=== PATIENT | female | born 1995 | race African-American/Black ===

== ENCOUNTER 2018-05-06 17:21 | Emergency (ER) | payer MEDICAID, OTHER ==
[~2018-05-06] VITALS: Ht 160 cm; Wt 88.9 kg
[2018-05-06 17:38] VITALS: BP 136/76
[2018-05-06 17:41] LABS: BILIRUBIN,URINE NEGATIVE (NEG); CLARITY,URINE CLEAR; COLOR,URINE YELLOW; NITRITE,URINE NEGATIVE (NEG); PROTEIN,URINE NEGATIVE (NEG-TRACE)
[2018-05-06 17:51] LABS: BACTERIA,URINE FEW /HPF (0-FEW); RBC,URINE OCC /HPF (0-2); SQUAMOUS EPITHELIAL CELL,UR MOD /LPF; WBC,URINE RARE /HPF (0-4)
[2018-05-06 17:52] LABS: U PREG PATIENT NEGATIVE (NEG)
--- NOTE | 2018-05-06 18:07 | PHYS DOC ---
Past Medical History Past Medical History: Kidney Stone Past Surgical History: No Surgical History Alcohol Use: None Drug Use: None Adult General Chief Complaint Chief Complaint: ABDOMINAL PAIN HPI HPI Patient is a 22 year old female presented to ER today for evaluation of right upper quadrant abdominal pain off and on for one year. The symptoms started again at 10 AM today. She denies any nausea or vomiting, no pelvic pain, no vaginal bleeding or discharge. She denies any chest pain, no trouble breathing. No urinary symptoms. Review of Systems Review of Systems Constitutional: Denies fever or chills [] Eyes: Denies change in visual acuity, redness, or eye pain [] HENT: Denies nasal congestion or sore throat [] Respiratory: Denies cough or shortness of breath [] Cardiovascular: No additional information not addressed in HPI [] GI: positive for abdominal pain NO nausea, vomiting, bloody stools or diarrhea [ ] : Denies dysuria or hematuria [] Musculoskeletal: Denies back pain or joint pain [] Integument: Denies rash or skin lesions [] Neurologic: Denies headache, focal weakness or sensory changes [] Endocrine: Denies polyuria or polydipsia [] All other systems were reviewed and found to be within normal limits, except as documented in this note. Allergies Allergies Allergies Coded Allergies Type Severity Reaction Last Updated Verified No Known Drug Allergies 09/21/13 No Physical Exam Physical Exam Constitutional: Well developed, well nourished, no acute distress, non-toxic appearance. [] HENT: Normocephalic, atraumatic, bilateral external ears normal, oropharynx moist, no oral exudates, nose normal. [] Eyes: PERRLA, EOMI, conjunctiva normal, no discharge. [] Neck: Normal range of motion, no tenderness, supple, no stridor. [] Cardiovascular:Heart rate regular rhythm, LOUD HOLOSYSTOLIC HEART MURMUR PRESENT. Lungs & Thorax: Bilateral breath sounds clear to auscultation [] Abdomen: Bowel sounds normal, soft, RUQ tenderness TO PALPATION, no masses, no pulsatile masses. [] Skin: Warm, dry, no erythema, no rash. [] Back: No tenderness, no CVA tenderness. [] Extremities: No tenderness, no cyanosis, no clubbing, ROM intact, no edema. [] Neurologic: Alert and oriented X 3, normal motor function, normal sensory function, no focal deficits noted. [] Psychologic: Affect normal, judgement normal, mood normal. [] Current Patient Data Vital Signs Vital Signs Date Time Temp Pulse Resp B/P (MAP) Pulse Ox O2 Delivery O2 Flow Rate FiO2 05/06/18 17:38 98.3 82 18 136/76 (96) 100 Room Air 98.3 Lab Values Laboratory Tests Test 05/06/18 17:30 05/06/18 18:16 05/06/18 19:05 Urine Collection Type Unknown Urine Color Yellow Urine Clarity Clear Urine pH 6.0 Urine Specific [place] >=1.030 Urine Protein Negative mg/dL (NEG-TRACE) Urine Glucose (UA) Negative mg/dL (NEG) Urine Ketones (Stick) Negative mg/dL (NEG) Urine Blood Large (NEG) Urine Nitrite Negative (NEG) Urine Bilirubin Negative (NEG) Urine Urobilinogen Dipstick 1.0 mg/dL (0.2 mg/dL) Urine Leukocyte Esterase Negative (NEG) Urine RBC Occ /HPF (0-2) Urine WBC Rare /HPF (0-4) Urine Squamous Epithelial Cells Mod /LPF Urine Bacteria Few /HPF (0-FEW) Urine Mucus Marked /LPF Urine Test Negative (NEG) White Blood Count 7.1 x10^3/uL (4.0-11.0) Red Blood Count 4.63 x10^6/uL (3.50-5.40) Hemoglobin 10.8 g/dL (12.0-15.5) L Hematocrit 33.7 % (36.0-47.0) L Mean Corpuscular Volume 73 fL (79-100) L Mean Corpuscular Hemoglobin 23 pg (25-35) L Mean Corpuscular Hemoglobin Concent 32 g/dL (31-37) Red Cell Distribution Width 16.7 % (11.5-14.5) H Platelet Count 291 x10^3/uL (140-400) Neutrophils (%) (Auto) 47 % (31-73) Lymphocytes (%) (Auto) 41 % (24-48) Monocytes (%) (Auto) 9 % (0-9) Eosinophils (%) (Auto) 2 % (0-3) Basophils (%) (Auto) 1 % (0-3) Neutrophils # (Auto) 3.3 x10^3uL (1.8-7.7) Lymphocytes # (Auto) 2.9 x10^3/uL (1.0-4.8) Monocytes # (Auto) 0.6 x10^3/uL (0.0-1.1) Eosinophils # (Auto) 0.2 x10^3/uL (0.0-0.7) Basophils # (Auto) 0.1 x10^3/uL (0.0-0.2) Sodium Level 139 mmol/L (136-145) Potassium Level 4.0 mmol/L (3.5-5.1) Chloride Level 103 mmol/L (98-107) Carbon Dioxide Level 29 mmol/L (21-32) Anion Gap 7 (6-14) Blood Urea Nitrogen 13 mg/dL (7-20) Creatinine 0.8 mg/dL (0.6-1.0) Estimated GFR (Cockcroft-Gault) 109.6 BUN/Creatinine Ratio 16 (6-20) Glucose Level 91 mg/dL (70-99) Calcium Level 9.1 mg/dL (8.5-10.1) Total Bilirubin 0.2 mg/dL (0.2-1.0) Aspartate Amino Transferase (AST) 17 U/L (15-37) Alanine Aminotransferase (ALT) 18 U/L (14-59) Alkaline Phosphatase 77 U/L (46-116) Total Protein 8.5 g/dL (6.4-8.2) H Albumin 3.7 g/dL (3.4-5.0) Albumin/Globulin Ratio 0.8 (1.0-1.7) L Lipase 123 U/L (73-393) Laboratory Tests 05/06/18 18:16 Laboratory Tests 05/06/18 19:05 EKG EKG [] Radiology/Procedures Radiology/Procedures [][facility] [address] [place] [address] IMAGING REPORT Signed PATIENT: GRACE GALLOWAY ACCOUNT: [id number] : 1995 LOCATION: ER AGE: 22 SEX: F EXAM STATUS: REG ER ORD. PHYSICIAN: LOYD GUTIERREZ DO REASON: RUQ ABDOMINAL PAIN PROCEDURE: ABDOMEN LTD Indication:RUQ PAIN TECHNIQUE: Grayscale, color Doppler and spectral waveform is of the limited abdomen obtained. COMPARISON:None FINDINGS:Visualized pancreas is within normal limits. Pancreatic tail not visualized due to overlying bowel gas. IVC is within normal limits. Main portal vein is patent. Liver measures 15 cm in longest dimension with diffusely increased echogenicity. Gallstones noted. No pericholecystic fluid or gallbladder wall thickening. Gallbladder is nondistended. CBD measures 3 mm in diameter and is within normal limits. Right kidney measures 10 cm in length without hydronephrosis. IMPRESSION: 1. Normal bilateral gallstone without sonographic secondary signs to suggest acute cholecystitis. Further evaluation with HIDA scan is recommended if concern for acute cholecystitis remains high. 2. Mild hepatomegaly. Electronically signed by: Martinez Castro DO (05/06/2018 7:52 PM) [facility] DICTATED and SIGNED BY: MARTINEZ CASTRO DO DATE: 05/06/18 1950 Course & Med Decision Making Course & Med Decision Making Pertinent Labs and Imaging studies reviewed. (See chart for details) [] Dragon Disclaimer Dragon Disclaimer This electronic medical record was generated, in whole or in part, using a voice recognition dictation system. Departure Departure Impression: Primary Impression: Biliary colic Disposition: 01 HOME, SELF-CARE Condition: STABLE Referrals: MICHAEL MEEKS MD Patient Instructions: Biliary Colic LOYD GUTIERREZ DO May 06, 2018 18:07
[2018-05-06 18:34] LABS: BASO # 0.1 x10^3/uL (0.0-0.2); BASO % 1 % (0-3); EOS # 0.2 x10^3/uL (0.0-0.7); EOS % 2 % (0-3); HEMATOCRIT 33.7 % (36.0-47.0); HEMOGLOBIN 10.8 g/dL (12.0-15.5); LYMPH # 2.9 x10^3/uL (1.0-4.8); LYMPH % 41 % (24-48); MEAN CORPUSCULAR HEMOGLOBIN 23 pg (25-35); MEAN CORPUSCULAR HGB CONC 32 g/dL (31-37); MEAN CORPUSCULAR VOLUME 73 fL (79-100); MONO # 0.6 x10^3/uL (0.0-1.1); MONO % 9 % (0-9); NEUT # 3.3 x10^3uL (1.8-7.7); NEUT % 47 % (31-73); PLATELET COUNT 291 x10^3/uL (140-400); RED BLOOD COUNT 4.63 x10^6/uL (3.50-5.40); RED CELL DISTRIBUTION WIDTH 16.7 % (11.5-14.5); WHITE BLOOD COUNT 7.1 x10^3/uL (4.0-11.0)
[2018-05-06 19:21] LABS: CALCIUM 9.1 mg/dL (8.5-10.1); CREATININE 0.8 mg/dL (0.6-1.0); GFR 109.6
[2018-05-06 19:28] LABS: ALBUMIN 3.7 g/dL (3.4-5.0); ALBUMIN/GLOBULIN RATIO 0.8 (1.0-1.7); TOTAL BILIRUBIN 0.2 mg/dL (0.2-1.0); TOTAL PROTEIN 8.5 g/dL (6.4-8.2)
--- NOTE | 2018-05-06 19:56 | RAD ---
Indication:RUQ PAIN TECHNIQUE: Grayscale, color Doppler and spectral waveform is of the limited abdomen obtained. COMPARISON:None FINDINGS:Visualized pancreas is within normal limits. Pancreatic tail not visualized due to overlying bowel gas. IVC is within normal limits. Main portal vein is patent. Liver measures 15 cm in longest dimension with diffusely increased echogenicity. Gallstones noted. No pericholecystic fluid or gallbladder wall thickening. Gallbladder is nondistended. CBD measures 3 mm in diameter and is within normal limits. Right kidney measures 10 cm in length without hydronephrosis. IMPRESSION: 1. Normal bilateral gallstone without sonographic secondary signs to suggest acute cholecystitis. Further evaluation with HIDA scan is recommended if concern for acute cholecystitis remains high. 2. Mild hepatomegaly. Electronically signed by: Martinez Castro DO (05/06/2018 7:52 PM) [facility]
== END 2018-05-06 20:29 | disposition home or self-care (01) ==
LOC: ER 17:21
DX: K80.50 Calculus of bile duct without cholangitis or cholecystitis without obstruction (principal); Z87.442 Personal history of urinary calculi
CPT/HCPCS: 36415; 76705; 80053; 81001; 81025; 83690; 85025; 99284-25

== ENCOUNTER → 2018-06-26 | Outpatient (CLI) | payer OTHER ==
--- NOTE | 2018-06-26 11:26 | CARD ---
MR#: [id number] Date of Study: 06/26/2018 Ordering Physician: ELANA DURON, Referring Physician: ELANA DURON Tech: Carmita Moore RDCS APPROVED REPORT EXAM: Two-dimensional and M-mode echocardiogram with Doppler and color Doppler. Other Information Quality : Good INDICATION Murmur 2D DIMENSIONS RVDd2.1 (2.9-3.5cm)Left Atrium(2D)3.0 (1.6-4.0cm) IVSd0.7 (0.7-1.1cm)Aortic Root(2D)2.0 (2.0-3.7cm) LVDd4.1 (3.9-5.9cm)LVOT Diameter1.9 (1.8-2.4cm) PWd0.7 (0.7-1.1cm)LVDs2.5 (2.5-4.0cm) FS (%) 30.0 %SV52.6 ml LVEF(%)60.0 (>50%) Aortic Valve AoV Peak Max.152.8cm/sAoV VTI26.5cm AO Peak GR.9.3mmHgLVOT Peak Max.115.3cm/s AO Mean GR.5mmHgAVA (VMAX)2.10cm2 MONICA (VTI)2.40cm2 Mitral Valve MV E Qmbeqbpq165.0cm/sMV DECEL UZHU269hy MV A Ifjjchno98.1cm/sE/A Ratio2.6 Tricuspid Valve TR P. Ohinbphy599qv/sRAP CIRUVMAT1blAr TR Peak Gr.65vbLsXGEN20hvHx Pulmonary Vein S1 Movbglqr70.4cm/sD2 Qfbnjdml55.4cm/s LEFT VENTRICLE The left ventricle is normal size. There is normal left ventricular wall thickness. The left ventricu lar systolic function is normal.. The Ejection Fraction is 60-65%. There is normal LV segmental wall motion. The left ventricular diastolic function and filling is normal for age. There is no ventricula r septal defect visualized. RIGHT VENTRICLE The right ventricle is normal size. The right ventricular systolic function is normal. ATRIA The left atrium size is normal. The right atrium size is normal. The interatrial septum is intact wit h no evidence for an atrial septal defect or patent foramen ovale as noted on 2-D or Doppler imaging. AORTIC VALVE The aortic valve is normal in structure and function. Doppler and Color Flow revealed no significant aortic regurgitation. There is no significant aortic valvular stenosis. MITRAL VALVE The mitral valve is normal in structure and function. There is no evidence of mitral valve prolapse. There is no mitral valve stenosis. Doppler and Color Flow revealed no mitral valve regurgitation note d. TRICUSPID VALVE The tricuspid valve is normal in structure and function. Doppler and Color Flow revealed trace tricus pid regurgitation. The PA pressure was estimated at 32 mmHg. There is no tricuspid valve stenosis. PULMONIC VALVE The pulmonary valve is normal in structure and function. Doppler and Color Flow revealed no pulmonic valvular regurgitation. There is no pulmonic valvular stenosis. GREAT VESSELS The aortic root is normal in size. The ascending aorta is not well seen. The IVC is normal in size an d collapses >50% with inspiration. PERICARDIAL EFFUSION There is no evidence of significant pericardial effusion. Critical Notification Critical Value: No <Conclusion> The left ventricular systolic function is normal.. The Ejection Fraction is 60-65%. There is normal LV segmental wall motion. Trace tricuspid regurgitation. The PA pressure was estimated at 32 mmHg. There is no evidence of significant pericardial effusion. Signed by : Elana Duron, Electronically Approved : 06/26/2018 11:24:51
== END | disposition home or self-care (01) ==
LOC: ECHO 10:00
PROVIDERS: ATTEND Internal Medicine Cardiovascular Disease
DX: R01.1 Cardiac murmur, unspecified (principal)
CPT/HCPCS: 93306

== ENCOUNTER 2018-09-09 16:43 | Emergency (ER) | payer OTHER ==
[~2018-09-09] VITALS: Ht 160 cm; Wt 88.9 kg
[2018-09-09 17:39] VITALS: BP 136/76
[2018-09-09] MEDS ORDERED: HYDR-3164 PO (17:52)
[2018-09-09] MEDS ORDERED: CEPH-264 PO (17:52)
--- NOTE | 2018-09-09 17:54 | PHYS DOC ---
Past Medical History Past Medical History: Kidney Stone Past Surgical History: No Surgical History Alcohol Use: None Drug Use: None Adult General Chief Complaint Chief Complaint: HEMORRHOIDS HPI HPI Patient is a 23 year old female who presents with left lower inner labia abscess x 5 days. Patient denies nausea, vomiting, fever, diarrhea, constipation , abnormal vaginal discharge or bleeding. States is very painful to walk or sit. She rates her pain a 10 out of 10. Patient states she's been trying to use Aleve, muscle relaxer, Preparation H. Review of Systems Review of Systems Constitutional: Denies fever or chills [] Eyes: Denies change in visual acuity, redness, or eye pain [] HENT: Denies nasal congestion or sore throat [] Respiratory: Denies cough or shortness of breath [] Cardiovascular: No additional information not addressed in HPI [] GI: Denies abdominal pain, nausea, vomiting, bloody stools or diarrhea [] : vaginal red raised tender lump. Denies dysuria or hematuria [] Musculoskeletal: Denies back pain or joint pain [] Integument: Denies rash or skin lesions [] Neurologic: Denies headache, focal weakness or sensory changes [] All other systems were reviewed and found to be within normal limits, except as documented in this note. Allergies Allergies Allergies Coded Allergies Type Severity Reaction Last Updated Verified No Known Drug Allergies 09/21/13 No Physical Exam Physical Exam Constitutional: Well developed, well nourished, no acute distress, non-toxic appearance. [] HENT: Normocephalic, atraumatic, bilateral external ears normal, oropharynx moist, no oral exudates, nose normal. [] Eyes: PERRLA, EOMI, conjunctiva normal, no discharge. [] Neck: Normal range of motion, no tenderness, supple, no stridor. [] Cardiovascular:Heart rate regular rhythm, no murmur [] Lungs & Thorax: Bilateral breath sounds clear to auscultation [] Abdomen: Bowel sounds normal, soft, no tenderness, no masses, no pulsatile masses. [] Skin: Left inner labial hard, tender bump. Warm, dry, no erythema, no rash. [] Back: No tenderness, no CVA tenderness. [] Extremities: No tenderness, no cyanosis, no clubbing, ROM intact, no edema. [] Neurologic: Alert and oriented X 3, normal motor function, normal sensory function, no focal deficits noted. [] Psychologic: Affect normal, judgement normal, mood normal. [] Current Patient Data Vital Signs Vital Signs Date Time Temp Pulse Resp B/P (MAP) Pulse Ox O2 Delivery O2 Flow Rate FiO2 09/09/18 17:39 98.3 82 19 136/76 (96) 99 Room Air 98.3 EKG EKG [] Radiology/Procedures Radiology/Procedures [] Course & Med Decision Making Course & Med Decision Making Patient is a 23 year old female who presents with left lower inner labia abscess x 5 days. Patient denies nausea, vomiting, fever, diarrhea, constipation , abdominal pain, abnormal vaginal discharge or bleeding. States is very painful to walk or sit. She rates her pain a 10 out of 10. Patient states she's been trying to use Aleve, muscle relaxer, Preparation H. On vaginal exam with Lilly RN igniter assembler, Patient has a left inner labial red, nickel sized, slightly raised, hard tender bump or abscess. The area is half on skin, half on mucus membrane. Differentials to be Bartholin's cyst versus abscess. Signs within normal limits. Afebrile. Patient is going to be prescribed antibiotics and told after 48-72 hours if the pain gets worse in the area gets bigger that she needs to follow up with gynecology. I will also refer her to a human resources executive. Dannon Disclaimer Cora Disclaimer This electronic medical record was generated, in whole or in part, using a voice recognition dictation system. Departure Departure Impression: Primary Impression: Abscess of vagina Disposition: 01 HOME, SELF-CARE Condition: STABLE Referrals: NO PCP (PCP) DIANE BERGERON Jr, MD Patient Instructions: Abscess Additional Instructions: Patient to follow-up with gynecology as soon as possible if not getting better in the area is getting bigger and more painful. Take medication as prescribed. Sit in a warm bath several bath several times a day to help pain. Scripts Cephalexin (KEFLEX) 500 Mg Capsule 1 CAP PO BID, #14 CAP Prov: KUSUM MARTINEZ APRN 09/09/18 Hydrocodone/Apap 5-325 (NORCO 5-325 TABLET) 1 Each Tablet 1 TAB PO PRN Q6HRS PRN for PAIN, #8 TAB 0 Refills Prov: KUSUM MARTINEZ APRN 09/09/18 KUSUM MARTINEZ APRN Sep 09, 2018 17:54
== END 2018-09-09 18:16 | disposition home or self-care (01) ==
LOC: ER 16:43
DX: N76.0 Acute vaginitis (principal); Z87.442 Personal history of urinary calculi
CPT/HCPCS: 99283

== ENCOUNTER 2018-11-22 15:41 | Emergency (ER) | payer OTHER ==
[~2018-11-22] VITALS: Ht 160 cm; Wt 90.3 kg
[~2018-11-22 15:41] MED LIST: CEPH-264 PO; HYDR-3164 PO
[2018-11-22] MEDS ORDERED: ONDANSETRON PF 4 MG/2 ML VIAL. IV ONE (16:00)
[2018-11-22] MEDS ORDERED: fentaNYL PF VIAL 100 MCG/2 ML VIAL IV ONE (16:00)
[2018-11-22] MEDS ORDERED: IV NORMAL SALINE 1000ML BAG 1,000 ML IV ONE ×2 (16:00)
[2018-11-22 16:17] LABS: BILIRUBIN,URINE NEGATIVE (NEG); CLARITY,URINE CLEAR; COLOR,URINE YELLOW; NITRITE,URINE NEGATIVE (NEG); PH,URINE 6.5; PROTEIN,URINE NEGATIVE (NEG-TRACE); UROBILINOGEN,URINE 0.2 mg/dL (0.2 mg/dL)
[2018-11-22 16:23] LABS: BARBITURATES NEG (NEG); BENZODIAZEPINES NEG (NEG); CANNABINOIDS NEG (NEG); COCAINE NEG (NEG); METHADONE NEG (NEG); OPIATES NEG (NEG); PHENCYCLIDINE NEG (NEG)
[2018-11-22 16:27] LABS: AMPHETAMINE/METHAMPHETAMINE NEG (NEG)
[2018-11-22 16:35] LABS: RBC,URINE 0 /HPF (0-2)
[2018-11-22 16:36] LABS: BACTERIA,URINE FEW /HPF (0-FEW); SQUAMOUS EPITHELIAL CELL,UR FEW /LPF; WBC,URINE RARE /HPF (0-4)
[2018-11-22 16:36] LABS: BASO # 0.1 x10^3/uL (0.0-0.2); BASO % 1 % (0-3); EOS # 0.1 x10^3/uL (0.0-0.7); EOS % 2 % (0-3); HEMATOCRIT 34.6 % (36.0-47.0); HEMOGLOBIN 11.3 g/dL (12.0-15.5); LYMPH % 28 % (24-48); MEAN CORPUSCULAR HEMOGLOBIN 24 pg (25-35); MEAN CORPUSCULAR HGB CONC 33 g/dL (31-37); MEAN CORPUSCULAR VOLUME 74 fL (79-100); MONO # 0.4 x10^3/uL (0.0-1.1); MONO % 6 % (0-9); NEUT # 4.6 x10^3uL (1.8-7.7); NEUT % 64 % (31-73); PLATELET COUNT 298 x10^3/uL (140-400); RED BLOOD COUNT 4.69 x10^6/uL (3.50-5.40); RED CELL DISTRIBUTION WIDTH 16.2 % (11.5-14.5); WHITE BLOOD COUNT 7.2 x10^3/uL (4.0-11.0)
[2018-11-22 16:52] LABS: CALCIUM 9.5 mg/dL (8.5-10.1); CREATININE 0.7 mg/dL (0.6-1.0); GFR 126.6
[2018-11-22 16:58] LABS: ALBUMIN 3.6 g/dL (3.4-5.0); ALBUMIN/GLOBULIN RATIO 0.8 (1.0-1.7); TOTAL BILIRUBIN 0.5 mg/dL (0.2-1.0); TOTAL PROTEIN 8.3 g/dL (6.4-8.2)
--- NOTE | 2018-11-22 17:16 | RAD ---
EXAM: Abdomen sonogram. HISTORY: Right upper quadrant pain. TECHNIQUE: Sonographic imaging of the abdomen was performed. COMPARISON: 05/06/2018. FINDINGS: The liver is normal in size. No focal hepatic lesion is seen. The common bile duct is normal in caliber. There is a nonmobile gallstone within the gallbladder neck. The gallbladder wall is normal in thickness. The right kidney is unremarkable. The inferior vena cava is patent. The pancreas is obscured due to bowel gas. IMPRESSION: 1. Nonmobile stone within the gallbladder neck. There are no findings suggesting superimposed cholecystitis. 2. Obscured pancreas due to bowel gas. Electronically signed by: Suha Ramos MD (11/22/2018 5:13 PM) [facility]
--- NOTE | 2018-11-22 18:23 | PHYS DOC ---
Past Medical History Past Medical History: Gallstones, Kidney Stone Past Surgical History: No Surgical History Alcohol Use: None Drug Use: None Adult General Chief Complaint Chief Complaint: ABDOMINAL PAIN HPI HPI Patient is a 23 year old female with history of gallstones who presents to the ED today complaining of 10 out of 10 right upper quadrant abdominal pain described as sharp and constant that began at 2:00 after having crab legs. Patient denies any nausea vomiting. Denies any fever. Denies any diarrhea. Den ies any chance she is . Review of Systems Review of Systems Constitutional: Denies fever or chills [] Eyes: Denies change in visual acuity, redness, or eye pain [] HENT: Denies nasal congestion or sore throat [] Respiratory: Denies cough or shortness of breath [] Cardiovascular: No additional information not addressed in HPI [] GI: Reports right upper quadrant abdominal pain, denies nausea, vomiting, bloody stools or diarrhea [] : Denies dysuria or hematuria [] Musculoskeletal: Denies back pain or joint pain [] Integument: Denies rash or skin lesions [] Neurologic: Denies headache, focal weakness or sensory changes [] All other systems were reviewed and found to be within normal limits, except as documented in this note. Current Medications Current Medications Current Medications Medications (Trade) Dose Ordered Sig/Lilibeth Start Time Stop Time Status Last Admin Dose Admin Fentanyl Citrate (Fentanyl 2ml Vial) 50 mcg 1X ONCE 11/22/18 16:00 11/22/18 16:01 DC 11/22/18 16:31 50 MCG Ondansetron HCl (Zofran) 4 mg 1X ONCE 11/22/18 16:00 11/22/18 16:01 DC 11/22/18 16:29 4 MG Sodium Chloride 1,000 ml @ 1,000 mls/hr 1X ONCE 11/22/18 16:00 11/22/18 16:59 DC 11/22/18 17:41 1,000 MLS/HR Allergies Allergies Allergies Coded Allergies Type Severity Reaction Last Updated Verified No Known Drug Allergies 09/21/13 No Physical Exam Physical Exam Constitutional: Well developed, well nourished, no acute distress, non-toxic appearance. [] HENT: Normocephalic, atraumatic, bilateral external ears normal, oropharynx moist, no oral exudates, nose normal. [] Eyes: PERRLA, EOMI, conjunctiva normal, no discharge. [] Neck: Normal range of motion, no tenderness, supple, no stridor. [] Cardiovascular:Heart rate regular rhythm, no murmur [] Lungs & Thorax: Bilateral breath sounds clear to auscultation [] Abdomen: Rounded abdomen. Bowel sounds normal, soft, slight right upper quadrant tenderness with negative Huffman sign, no right lower quadrant tenderness, negative psoas sign, negative obturator sign, negative Rovsing sign, no masses, no pulsatile masses. [] Skin: Warm, dry, no erythema, no rash. [] Back: No tenderness, no CVA tenderness. [] Extremities: No tenderness, no cyanosis, no clubbing, ROM intact, no edema. [] Neurologic: Alert and oriented X 3, normal motor function, normal sensory function, no focal deficits noted. [] Psychologic: Affect normal, judgement normal, mood normal. [] Current Patient Data Vital Signs Vital Signs Date Time Temp Pulse Resp B/P (MAP) Pulse Ox O2 Delivery O2 Flow Rate FiO2 11/22/18 16:31 12 99 Room Air 11/22/18 15:51 98.1 94 143/65 (91) 98.1 Lab Values Laboratory Tests Test 11/22/18 16:00 11/22/18 16:09 11/22/18 16:25 Urine Collection Type Unknown Urine Color Yellow Urine Clarity Clear Urine pH 6.5 Urine Specific [place] 1.015 Urine Protein Negative mg/dL (NEG-TRACE) Urine Glucose (UA) Negative mg/dL (NEG) Urine Ketones (Stick) Negative mg/dL (NEG) Urine Blood Negative (NEG) Urine Nitrite Negative (NEG) Urine Bilirubin Negative (NEG) Urine Urobilinogen Dipstick 0.2 mg/dL (0.2 mg/dL) Urine Leukocyte Esterase Trace (NEG) Urine RBC 0 /HPF (0-2) Urine WBC Rare /HPF (0-4) Urine Squamous Epithelial Cells Few /LPF Urine Bacteria Few /HPF (0-FEW) Urine Opiates Screen Neg (NEG) Urine Methadone Screen Neg (NEG) Urine Barbiturates Neg (NEG) Urine Phencyclidine Screen Neg (NEG) Urine Amphetamine/Methamphetamine Neg (NEG) Urine Benzodiazepines Screen Neg (NEG) Urine Cocaine Screen Neg (NEG) Urine Cannabinoids Screen Neg (NEG) Urine Ethyl Alcohol Neg (NEG) POC Urine HCG, Qualitative Hcg negative (Negative) White Blood Count 7.2 x10^3/uL (4.0-11.0) Red Blood Count 4.69 x10^6/uL (3.50-5.40) Hemoglobin 11.3 g/dL (12.0-15.5) L Hematocrit 34.6 % (36.0-47.0) L Mean Corpuscular Volume 74 fL (79-100) L Mean Corpuscular Hemoglobin 24 pg (25-35) L Mean Corpuscular Hemoglobin Concent 33 g/dL (31-37) Red Cell Distribution Width 16.2 % (11.5-14.5) H Platelet Count 298 x10^3/uL (140-400) Neutrophils (%) (Auto) 64 % (31-73) Lymphocytes (%) (Auto) 28 % (24-48) Monocytes (%) (Auto) 6 % (0-9) Eosinophils (%) (Auto) 2 % (0-3) Basophils (%) (Auto) 1 % (0-3) Neutrophils # (Auto) 4.6 x10^3uL (1.8-7.7) Lymphocytes # (Auto) 2.0 x10^3/uL (1.0-4.8) Monocytes # (Auto) 0.4 x10^3/uL (0.0-1.1) Eosinophils # (Auto) 0.1 x10^3/uL (0.0-0.7) Basophils # (Auto) 0.1 x10^3/uL (0.0-0.2) Sodium Level 140 mmol/L (136-145) Potassium Level 4.0 mmol/L (3.5-5.1) Chloride Level 105 mmol/L (98-107) Carbon Dioxide Level 24 mmol/L (21-32) Anion Gap 11 (6-14) Blood Urea Nitrogen 12 mg/dL (7-20) Creatinine 0.7 mg/dL (0.6-1.0) Estimated GFR (Cockcroft-Gault) 126.6 BUN/Creatinine Ratio 17 (6-20) Glucose Level 114 mg/dL (70-99) H Calcium Level 9.5 mg/dL (8.5-10.1) Total Bilirubin 0.5 mg/dL (0.2-1.0) Aspartate Amino Transferase (AST) 87 U/L (15-37) H Alanine Aminotransferase (ALT) 46 U/L (14-59) Alkaline Phosphatase 89 U/L (46-116) Total Protein 8.3 g/dL (6.4-8.2) H Albumin 3.6 g/dL (3.4-5.0) Albumin/Globulin Ratio 0.8 (1.0-1.7) L Lipase 121 U/L (73-393) Ethyl Alcohol Level < 10 mg/dL (0-10) Laboratory Tests 11/22/18 16:25 Laboratory Tests 11/22/18 16:25 EKG EKG [] Radiology/Procedures Radiology/Procedures []PROCEDURE: ABDOMEN LTD EXAM: Abdomen sonogram. HISTORY: Right upper quadrant pain. TECHNIQUE: Sonographic imaging of the abdomen was performed. COMPARISON: 05/06/2018. FINDINGS: The liver is normal in size. No focal hepatic lesion is seen. The common bile duct is normal in caliber. There is a nonmobile gallstone within the gallbladder neck. The gallbladder wall is normal in thickness. The right kidney is unremarkable. The inferior vena cava is patent. The pancreas is obscured due to bowel gas. IMPRESSION: 1. Nonmobile stone within the gallbladder neck. There are no findings suggesting superimposed cholecystitis. 2. Obscured pancreas due to bowel gas. Electronically signed by: Suha Brown MD (11/22/2018 5:13 PM) [facility] DICTATED and SIGNED BY: SUHA BROWN MD DATE: 11/22/18 0464 Course & Med Decision Making Course & Med Decision Making Pertinent Labs and Imaging studies reviewed. (See chart for details) This is a 23-year-old female patient presenting to the ED today with right upper quadrant abdominal pain, patient has history of gallstones. CBC within normal WBC, CMP with slightly elevated AST at 87. ALT is normal. Urine analysis is negative. Right upper quadrant abdominal ultrasound noted for non mobile gallstone within the gallbladder neck no cholecystitis. Patient is in no dis tress. He was given IV fluids and fentanyl. Feeling better. Discharged to home. Provided general surgery for follow-up as an outpatient. Provided return precautions. Dragon Disclaimer Dragon Disclaimer This electronic medical record was generated, in whole or in part, using a voice recognition dictation system. Departure Departure Impression: Primary Impression: Gallstones Disposition: 01 HOME, SELF-CARE Condition: STABLE Referrals: NO PCP (PCP) MICHAEL MEEKS MD Follow up in 1-2 weeks Patient Instructions: Cholelithiasis Additional Instructions: You were evaluated in the emergency room and noted to have a gallstone. We provided you a general surgeon, follow-up with them in the course of this week or next week. Please follow the diet measures we discussed. JUANPABLO GÓMEZ CONTROL SYSTEMS DEVELOPER Nov 22, 2018 18:23
[2018-11-22 19:15] VITALS: BP 145/75
== END 2018-11-22 19:15 | disposition home or self-care (01) ==
LOC: ER 15:41
DX: K80.20 Calculus of gallbladder without cholecystitis without obstruction (principal); Z87.442 Personal history of urinary calculi
CPT/HCPCS: 36415; 76705; 80053; 80307; 81001; 81025; 83690; 85025; 96374; 96375; 99285; G0480; J2405; J3010; J7030

== ENCOUNTER 2021-10-04 04:08 | Emergency (ER) | payer OTHER ==
[~2021-10-04] VITALS: Ht 160 cm; Wt 88.6 kg
[2021-10-04] MEDS ORDERED: MORPHINE SULFATE 4 MG/ML INJ. IVP ONE (04:30)
[2021-10-04] MEDS ORDERED: KETOROLAC 15 MG/ML VIAL. IVP ONE (04:30)
[2021-10-04] MEDS ORDERED: ONDANSETRON PF 4 MG/2 ML VIAL. IVP ONE (04:30)
[2021-10-04] MEDS ORDERED: IV NORMAL SALINE 1000ML BAG 1,000 ML IV ONE (04:30)
--- NOTE | 2021-10-04 05:43 | PHYS DOC ---
Past Medical History Past Medical History: Gallstones, Kidney Stone (CORI ESTRADA MD) Past Surgical History: No Surgical History (CORI ESTRADA MD) Smoking Status: Current Every Day Smoker Alcohol Use: None Drug Use: None (CORI ESTRADA MD) Adult General Chief Complaint Chief Complaint: ABDOMINAL PAIN HPI HPI The patient is a 26-year-old female with known cholelithiasis who presents for evaluation of what she describes as "gallbladder pain." Has been symptomatic for the past 2 days. Discomfort localizes to the right upper quadrant and is worse with palpation. It radiates around to the right lateral abdomen. Worse with eating. Associated nausea without vomiting. No fevers, upper respiratory congestion/rhinorrhea, cough, sore throat, shortness of breath or chest pain of any kind, lower abdominal pain of any kind, flank pain, midline back pain, dysur ia, hematuria, polyuria or oliguria, changes in bowel habits, unusual vaginal discharge or bleeding, pain or swelling to arms or legs. Patient is alert, pleasantly and appropriately interactive and in no acute distress with appropriate vital signs upon initial evaluation here in the emergency department. (CORI ESTRADA MD) Review of Systems Review of Systems A 12 point review of systems was completed and was negative except where noted in HPI above. (CORI ESTRADA MD) Current Medications Current Medications Current Medications Medications (Trade) Dose Ordered Sig/Lilibeth Start Time Stop Time Status Last Admin Dose Admin Ketorolac Tromethamine (Toradol 15mg Vial) 15 mg 1X ONCE 10/04/21 04:30 10/04/21 04:38 DC 10/04/21 06:15 15 MG Morphine Sulfate (Morphine Sulfate) 4 mg 1X ONCE 10/04/21 04:30 10/04/21 04:38 DC 10/04/21 06:15 4 MG Ondansetron HCl (Zofran) 4 mg 1X ONCE 10/04/21 04:30 10/04/21 04:38 DC 10/04/21 06:14 4 MG Sodium Chloride 1,000 ml @ 1,000 mls/hr 1X ONCE 10/04/21 04:30 10/04/21 05:29 DC 10/04/21 06:14 1,000 MLS/HR (CHANO MATT DO) Allergies Allergies Allergies Coded Allergies Type Severity Reaction Last Updated Verified No Known Drug Allergies 10/04/21 No (CHANO MATT DO) Physical Exam Physical Exam 26-year-old female appearing nontoxic and in no acute distress. Head is normocephalic and atraumatic. Neck is supple and nontender. Oropharynx is moist. Lungs are clear to auscultation at all stations. There is a normal S1 and S2 without rubs or gallops and capillary refill is appropriate, less than 2 seconds globally. Abdomen is soft, nondistended and with moderate focal right upper quadrant tenderness to palpation without rebound or guarding. No lower quadrant tenderness to palpation. Skin is warm and dry without cyanosis, clubbing or edema. Psychiatrically, the patient demonstrates appropriate mood and affect and is alert. (CORI ESTRADA MD) Current Patient Data Vital Signs Vital Signs Date Time Temp Pulse Resp B/P (MAP) Pulse Ox O2 Delivery O2 Flow Rate FiO2 10/04/21 06:15 70 109/59 (76) 100 Room Air 10/04/21 06:15 20 10/04/21 04:15 98.3 98.3 (CHANO MATT DO) Lab Values Laboratory Tests Test 10/04/21 05:52 10/04/21 06:35 White Blood Count 7.2 x10^3/uL (4.0-11.0) Red Blood Count 3.92 x10^6/uL (3.50-5.40) Hemoglobin 9.6 g/dL (12.0-15.5) L Hematocrit 30.3 % (36.0-47.0) L Mean Corpuscular Volume 77 fL (79-100) L Mean Corpuscular Hemoglobin 25 pg (25-35) Mean Corpuscular Hemoglobin Concent 32 g/dL (31-37) Red Cell Distribution Width 15.5 % (11.5-14.5) H Platelet Count 222 x10^3/uL (140-400) Neutrophils (%) (Auto) 55 % (31-73) Lymphocytes (%) (Auto) 35 % (24-48) Monocytes (%) (Auto) 7 % (0-9) Eosinophils (%) (Auto) 2 % (0-3) Basophils (%) (Auto) 1 % (0-3) Neutrophils # (Auto) 4.0 x10^3/uL (1.8-7.7) Lymphocytes # (Auto) 2.5 x10^3/uL (1.0-4.8) Monocytes # (Auto) 0.5 x10^3/uL (0.0-1.1) Eosinophils # (Auto) 0.2 x10^3/uL (0.0-0.7) Basophils # (Auto) 0.0 x10^3/uL (0.0-0.2) Sodium Level 138 mmol/L (136-145) Potassium Level 3.9 mmol/L (3.5-5.1) Chloride Level 105 mmol/L (98-107) Carbon Dioxide Level 23 mmol/L (21-32) Anion Gap 10 (6-14) Blood Urea Nitrogen 13 mg/dL (7-20) Creatinine 0.7 mg/dL (0.6-1.0) Estimated GFR (Cockcroft-Gault) 123.4 BUN/Creatinine Ratio 19 (6-20) Glucose Level 98 mg/dL (70-99) Calcium Level 8.1 mg/dL (8.5-10.1) L Total Bilirubin 0.2 mg/dL (0.2-1.0) Aspartate Amino Transferase (AST) 10 U/L (15-37) L Alanine Aminotransferase (ALT) 14 U/L (14-59) Alkaline Phosphatase 57 U/L (46-116) Total Protein 7.5 g/dL (6.4-8.2) Albumin 3.3 g/dL (3.4-5.0) L Albumin/Globulin Ratio 0.8 (1.0-1.7) L Lipase 82 U/L (73-393) Serum Test, Qualitative Negative (NEG) Laboratory Tests 10/04/21 05:52 Laboratory Tests 10/04/21 06:35 (CHANO MATT DO) EKG EKG [] (CORI ESTRADA MD) Radiology/Procedures Radiology/Procedures [] (CORI ESTRADA MD) Radiology/Procedures IMPRESSION: 1. Nonmobile gallstones at the gallbladder neck. While no inflammatory changes of the gallbladder are evident on this exam, the patient did exhibit a positive sonographic Huffman's sign which could be indicative of early changes of cholecystitis. 2. No biliary ductal dilatation. 3. Increased liver echogenicity likely representing changes of steatosis. (CHANO MATT DO) Course & Med Decision Making Course & Med Decision Making Checking labs and right upper quadrant ultrasound as noted and will give IV fluids and medication for nausea and discomfort as per flowsheet and will then reevaluate. 0600: Right upper quadrant ultrasound with a stone in the gallbladder neck and additional mobile gallstones with borderline gallbladder wall per tech report. Formal radiology interpretation still pending. Labs still pending. Transition of care at this time to Dr. Matt. (CORI ESTRADA MD) Course & Med Decision Making Case was endorsed to me from . Patient resting comfortably. Ultrasound findings and blood work were reviewed with the patient and patient given strict return precautions and dietary restric tions. Patient will follow up with surgery in the outpatient setting concerns were addressed (CHANO MATT DO) Dragon Disclaimer Dragon Disclaimer This electronic medical record was generated, in whole or in part, using a voice recognition dictation system. (CORI ESTRADA MD) Departure Departure Impression: Primary Impression: Right upper quadrant abdominal pain Condition: STABLE Referrals: NO PCP (PCP) CORI ESTRADA MD Oct 04, 2021 05:43 CHANO MATT DO Oct 04, 2021 07:18
--- NOTE | 2021-10-04 05:54 | RAD ---
EXAM: ULTRASOUND ABDOMEN LIMITED CLINICAL HISTORY: Right upper quadrant abdominal pain COMPARISON: Abdomen ultrasound November 22, 2018 Findings: Most of the pancreas, aorta and IVC cannot be visualized due to bowel gas shadowing. Increased liver echogenicity likely representing liver steatosis. No liver masses are evident. No monae nges of liver cirrhosis. There is patent hepatopedal portal vein blood flow. Nonmobile gallstone in g allbladder neck. No inflammatory change of the gallbladder evident. The sonographic Huffman's sign is documented by the shipping clerk/admin however. No biliary ductal dilation common bile duct diameter is 5 mm. Right renal length 9.6 cm. No mass or hydronephrosis of the right kidney evident. Spleen and left kid bobby not evaluated. IMPRESSION: 1. Nonmobile gallstones at the gallbladder neck. While no inflammatory changes of the gallbladder are evident on this exam, the patient did exhibit a positive sonographic Huffman's sign which could be in dicative of early changes of cholecystitis. 2. No biliary ductal dilatation. 3. Increased liver echogenicity likely representing changes of steatosis. Electronically signed by: Bill Piña MD (10/04/2021 5:51 AM) [facility]
[2021-10-04 06:03] LABS: BASO % 1 % (0-3); EOS # 0.2 x10^3/uL (0.0-0.7); EOS % 2 % (0-3); HEMATOCRIT 30.3 % (36.0-47.0); HEMOGLOBIN 9.6 g/dL (12.0-15.5); LYMPH # 2.5 x10^3/uL (1.0-4.8); LYMPH % 35 % (24-48); MEAN CORPUSCULAR HEMOGLOBIN 25 pg (25-35); MEAN CORPUSCULAR HGB CONC 32 g/dL (31-37); MEAN CORPUSCULAR VOLUME 77 fL (79-100); MONO # 0.5 x10^3/uL (0.0-1.1); MONO % 7 % (0-9); NEUT % 55 % (31-73); PLATELET COUNT 222 x10^3/uL (140-400); RED BLOOD COUNT 3.92 x10^6/uL (3.50-5.40); RED CELL DISTRIBUTION WIDTH 15.5 % (11.5-14.5); WHITE BLOOD COUNT 7.2 x10^3/uL (4.0-11.0)
[2021-10-04 06:58] LABS: CALCIUM 8.1 mg/dL (8.5-10.1); CREATININE 0.7 mg/dL (0.6-1.0); GFR 123.4; POTASSIUM 3.9 mmol/L (3.5-5.1)
[2021-10-04 07:02] LABS: ALBUMIN 3.3 g/dL (3.4-5.0); ALBUMIN/GLOBULIN RATIO 0.8 (1.0-1.7); TOTAL BILIRUBIN 0.2 mg/dL (0.2-1.0); TOTAL PROTEIN 7.5 g/dL (6.4-8.2)
[2021-10-04 07:03] LABS: PREG TEST PT QUAL NEGATIVE (NEG)
[2021-10-04] MEDS ORDERED: OXYC1TAB15 PO (07:20)
[2021-10-04 07:46] VITALS: BP 103/57
== END 2021-10-04 07:57 | disposition home or self-care (01) ==
LOC: ER 04:08
DX: R10.11 Right upper quadrant pain (principal); R11.0 Nausea; F17.200 Nicotine dependence, unspecified, uncomplicated; Z87.442 Personal history of urinary calculi
CPT/HCPCS: 36415; 76705; 80053; 83690; 84703; 85025; 96361; 96374; 96375; 99285; J1885; J2270; J2405; J7030

== ENCOUNTER → 2021-11-15 | Outpatient (CLI) | payer OTHER ==
[~2021-11-15] MED LIST changes: +OXYC1TAB15 PO
== END ==
LOC: LAB 13:44
PROVIDERS: ATTEND Surgery
DX: Z01.812 Encounter for preprocedural laboratory examination (principal); Z20.822 Contact with and (suspected) exposure to COVID-19
CPT/HCPCS: U0003